=== PATIENT | male | born 1975 | race Caucasian/White ===

== ENCOUNTER 2016-10-11 12:31 | Emergency (ER) | payer OTHER ==
[~2016-10-11] VITALS: Ht 157.5 cm; Wt 106.7 kg
[2016-10-11 12:43] VITALS: Ht 157.5 cm; Wt 106.7 kg
[2016-10-11] MEDS ORDERED: AZIT250T94 PO (15:00)
[2016-10-11] MEDS ORDERED: D-ME473S18 PO (15:00)
--- NOTE | 2016-10-11 15:01 | ERD ---
ER Documentation Chief Complaint Date/Time DATE: 10/11/16 TIME: 15:00 Chief Complaint LEFT EAR PAIN WITH PUS X 3 DAYS HPI This 5-year-old male complains of left ear pain and discharge for the last 3 days. Is also had cough and congestion. He denies fevers, vomiting, shortness breath or chest pain ROS All systems reviewed and are negative except as per history of present illness. Medications Home Meds Active Scripts Dextromethorphan Hb-Promethazine Hcl (Promethazine DM Syrup) 473 Ml Syrup, 5 ML PO Q6H Y for COUGH, #4 OZ Prov:VELASQUEZ JAIN MD 10/11/16 Azithromycin* (Zithromax*) 250 Mg Tablet, 250 MG PO .ZPACK DIRECTED, #6 TAB TAKE 500 MG (2 TABS) THE FIRST DAY THEN 250 MG (1 TAB) DAYS 2-5 Prov:VELASQUEZ JAIN MD 10/11/16 Allergies Allergies: Coded Allergies: No Known Allergy (Unverified , 10/11/16) PMhx/Soc History of Surgery: Yes (hernia repair.) Anesthesia Reaction: No Hx Neurological Disorder: No Hx Respiratory Disorders: No Hx Cardiac Disorders: No Hx Psychiatric Problems: No Hx Miscellaneous Medical Probl: No Hx Alcohol Use: No Hx Substance Use: No Hx Tobacco Use: No Smoking Status: Never smoker Physical Exam Vitals Vital Signs Date Time Temp Pulse Resp B/P Pulse Ox O2 Delivery O2 Flow Rate FiO2 10/11/16 12:43 96.1 73 20 158/93 96 Physical Exam Const: [] Alert, [id number] per Head: Atraumatic Eyes: Normal Conjunctiva ENT: Normal External Ears, Nose and Mouth. Left TM shows yellow fluid with a small perforation and draining clear yellow liquid. External auditory canals normal. There is no mastoid tenderness or pain with passive range of motion. Neck: Full range of motion..~ No meningismus. Resp: Clear to auscultation bilaterally Cardio: Regular rate and rhythm, no murmurs Abd: Soft, non tender, non distended. Normal bowel sounds Skin: No petechiae or rashes Back: No midline or flank tenderness Ext: No cyanosis, or edema Neur: Awake and alert Psych: Normal Mood and Affect Procedures/MDM Patient signs and symptoms of left otitis media with perforation. We treated with Zithromax and promethazine and follow-up with his primary care doctor. The patient was stable with no new complaints during the ER course. Clinically, there is no current evidence to suggest meningitis, sepsis, acute abdomen, pneumonia, acute coronary syndrome, pulmonary embolism, or any other emergent condition appearing to require further evaluation or hospitalization. The patient should certainly return for any new or worsening symptoms per the aftercare instructions. They should otherwise follow-up with her primary care doctor for reevaluation this week. Departure Diagnosis: Primary Impression: Otitis media Otitis media type: suppurative Laterality: left Chronicity: acute Recurrence: not specified as recurrent Spontaneous tympanic membrane rupture: with spontaneous rupture Qualified Code: H66.012 - Acute suppurative otitis media of left ear with spontaneous rupture of tympanic membrane, recurrence not specified Condition: Stable Patient Instructions: Otitis Media, Abx Tx (Adult) Additional Instructions: Examines normal hoy. Cheque otro vez con myles doctor primario en el proximo victor or regresa para mas o nueva simptomas. VELASQUEZ JAIN MD Oct 11, 2016 15:01
== END 2016-10-11 15:10 | disposition home or self-care (01) ==
LOC: FTE 12:31
DX: H66.012 Acute suppurative otitis media with spontaneous rupture of ear drum, left ear (principal)
CPT/HCPCS: 99284